=== PATIENT | female | born 1960 | race Two or more races ===

== ENCOUNTER 2020-10-16 10:33 | Outpatient (REF) | payer OTHER, SELFPAY ==
--- NOTE | 2020-10-16 10:37 | XR_ITS ---
EXAMINATION: KNEE X-RAY CLINICAL INFORMATION: Left knee pain COMPARISON: None TECHNIQUE: Standing AP view of both knees and lateral and sunrise view of the left knee FINDINGS: Left knee: Bone alignment is normal. No fracture or dislocation is seen. There is arthritis at the medial femoral tibial and patellofemoral joints with joint space narrowing and small osteophyte. There is a small joint effusion. Standing AP view of the right knee demonstrates medial femoral tibial joint space narrowing and small osteophyte. XR/XR knee standing BI IMPRESSION: Left knee: Mild arthritis and small joint effusion. Right knee: Arthritis at the medial femoral tibial joint.
--- NOTE | 2020-10-16 10:37 | XR_ITS ---
EXAMINATION: KNEE X-RAY CLINICAL INFORMATION: Left knee pain COMPARISON: None TECHNIQUE: Standing AP view of both knees and lateral and sunrise view of the left knee FINDINGS: Left knee: Bone alignment is normal. No fracture or dislocation is seen. There is arthritis at the medial femoral tibial and patellofemoral joints with joint space narrowing and small osteophyte. There is a small joint effusion. Standing AP view of the right knee demonstrates medial femoral tibial joint space narrowing and small osteophyte. XR/XR knee LT 2V IMPRESSION: Left knee: Mild arthritis and small joint effusion. Right knee: Arthritis at the medial femoral tibial joint.
== END 2020-10-16 10:34 | disposition home or self-care (01) ==
LOC: HO.HOSX 10:33
PROVIDERS: Visit Provider Orthopaedic Surgery
DX: M25.562 Pain in left knee (principal)
CPT/HCPCS: 73560; 73565; 99202

== ENCOUNTER 2020-11-02 10:31 | Outpatient (REF) | payer OTHER, SELFPAY ==
--- NOTE | 2020-11-02 11:49 | ECG_ITS ---
Test Reason : PREOP Blood Pressure : / mmHG Vent. Rate : 068 BPM Atrial Rate : 068 BPM P-R Int : 132 ms QRS Dur : 110 ms QT Int : 408 ms P-R-T Axes : -19 -03 019 degrees QTc Int : 433 ms Normal sinus rhythm Nonspecific T wave abnormality Abnormal ECG No previous ECGs available Referred By: Kev Mas Electronically Signed By:ZEINAB BENAVIDES MD
[2020-11-02 12:41] LABS: MANUAL DIFF FLAG NO
[2020-11-02 12:49] LABS: Basophils Percent Auto 0.5 % (0-2); Eosinophils Absolute Auto 0.1 X10*3/uL (0.0-0.4); Eosinophils Percent Auto 1.2 % (0-4); Hematocrit 41.9 % (37-47); Hemoglobin 13.1 g/dl (12.0-16.0); Imm Gran Abs Auto 0.04 X10*3/uL (0.00-0.03); Imm Gran Pct Auto 0.6 % (0.0-0.4); Lymphocytes Absolute Auto 1.8 X10*3/uL (1.2-4.9); Lymphocytes Percent Auto 27.1 % (20-40); Mean Corpuscular HGB Conc 31.3 g/dl (31.0-35.0); Mean Corpuscular Hemoglobin 25.2 pg (27.0-33.0); Mean Corpuscular Volume 80.7 fL (80-98); Monocytes Absolute Auto 0.7 X10*3/uL (0.1-1.2); Neutrophils Percent Auto 59.6 % (45-73); Platelet Count 313 X10*3/uL (160-400); Red Blood Count 5.19 X10*6/uL (4.20-5.50); Red Cell Distribution Width 14.1 % (11.0-16.0); White Blood Count 6.6 X10*3/uL (4.8-10.8)
[2020-11-02 13:00] LABS: Anion Gap 14 (12-20); Blood Urea Nitrogen 15 mg/dL (9-16); Calcium 9.2 mg/dL (8.4-10.2); Carbon Dioxide 27 mmol/L (22-29); Chloride 101 mmol/L (96-108); Estimated Glomerular Filt Rate > 60; Glucose Random 105 mg/dL (60-115); Potassium 4.5 mmol/l (3.3-5.1); Sodium 137 mmol/L (135-145)
== END 2020-11-02 10:32 | disposition home or self-care (01) ==
LOC: HO.LAB 10:31
PROVIDERS: PCP Internal Medicine; Visit Provider Orthopaedic Surgery
DX: Z01.812 Encounter for preprocedural laboratory examination (principal); Z01.810 Encounter for preprocedural cardiovascular examination
CPT/HCPCS: 36415; 80048; 85025; 93005

== ENCOUNTER → 2020-11-30 09:59 | Outpatient (BNVA) | payer OTHER, SELFPAY | PROVIDERS: PCP Internal Medicine; Visit Provider Orthopaedic Surgery | DX: M17.12 Unilateral primary osteoarthritis, left knee (principal) | CPT/HCPCS: 99212 ==

== ENCOUNTER 2020-12-06 06:04 | Inpatient (IN) | payer OTHER, SELFPAY ==
--- NOTE | 2020-11-29 10:57 | HO.ANESPROP2 ---
Documented by User: Mary Claytonney 12/05/20 10:52 HPI - Anesthesia Eval Consult details Narrative: 60yo F for L TKA Severe PONV with GA. Scop patch not effective. PCP Cleared at low risk [facility] Past Medical History Medical History Arthritis Depression History of breast cancer PONV (postoperative nausea and vomiting) Family History Family history of problems with anesthesia: Yes (PONV) Surgical History Surgical History H/O gastric bypass History of ear surgery Hx of arthroscopy of left knee Hx of cholecystectomy History of Problems with Anesthesia: Yes (PONV) Social History Social History Are you a primary healthcare network pricing consultant to a significant other at home: No Do you presently have visiting nurse or other home services: No Alcohol intake: current Alcohol intake frequency: a few times a month Smoking Status: Former smoker Smoking Quit Date: 1975 Second Hand Smoke Exposure: No Use of substances other than those prescribed or required for medical reasons: No Have you been hit, kicked, punched, or otherwise hurt by someone within the past year? If so, by whom?: No Cheondoism Healthcare Practices: Rastafari Advance Directives: No Advance Directives Information Provided: No Advance Directives on File: No Recently lost weight without trying: No Current occupational status: unemployed Current occupation: right-handed Narrative Narrative: Activity limited to pain. No CP/SOB with ADL, walking. No recent illness. Meds Allergies Allergy/AdvReac Type Severity Reaction Status Date / Time codeine Allergy Severe Abdominal Verified 11/30/20 10:52 [From Tylenol-Codeine] Pain Home Medications Medication Instructions Recorded Confirmed Type meloxicam 15 mg tablet 15 mg PO DAILY 10/16/20 11/29/20 History sertraline 50 mg tablet 50 mg PO DAILY 10/16/20 11/29/20 History Exam Exam Date and Time: November 29, 2020 1057 Pertinent Lab Results Pertinent Lab Results: Laboratory Tests 11/02/20 11/02/20 11:55 11:55 WBC 6.6 Hgb 13.1 Hct 41.9 Plt Count 313 Sodium 137 Potassium 4.5 Chloride 101 Carbon Dioxide 27 BUN 15 Creatinine 0.79 Laboratory Tests 11/30/20 11:00 Blood Type A Negative Antibody Screen NEGATIVE Narrative Narrative: EKG 11/02/20: Normal sinus rhythm Nonspecific T wave abnormality Airway Mallampati Class: II Neck ROM: Full Denture: Upper and Lower Heart: RRR Lungs: CTAB Assessment and Plan Assessment Anesthesia Assessment: Anesthesia Plan Discussed and PAT Visit Documented by User: Alhaji Lerner MD 12/06/20 08:16 PMFSH Past Medical History Medical History Arthritis Depression History of breast cancer PONV (postoperative nausea and vomiting) Surgical History Surgical History H/O gastric bypass History of ear surgery Hx of arthroscopy of left knee Hx of cholecystectomy Social History Social History Are you a primary healthcare network pricing consultant to a significant other at home: No Do you presently have visiting nurse or other home services: No Alcohol intake: current Alcohol intake frequency: a few times a month Smoking Status: Former smoker Smoking Quit Date: 1975 Second Hand Smoke Exposure: No Use of substances other than those prescribed or required for medical reasons: No Have you been hit, kicked, punched, or otherwise hurt by someone within the past year? If so, by whom?: No Cheondoism Healthcare Practices: Rastafari Advance Directives: No Advance Directives Information Provided: No Advance Directives on File: No Recently lost weight without trying: No Current occupational status: unemployed Current occupation: right-handed Meds Allergies Allergy/AdvReac Type Severity Reaction Status Date / Time codeine Allergy Severe Abdominal Verified 11/30/20 10:52 [From Tylenol-Codeine] Pain Home Medications Medication Instructions Recorded Confirmed Type meloxicam 15 mg tablet 15 mg PO DAILY 10/16/20 11/29/20 History sertraline 50 mg tablet 50 mg PO DAILY 10/16/20 11/29/20 History Assessment and Plan Assessment Anesthesia Assessment: Anesthesia Plan Discussed and Chart Reviewed Final Anesthetic Review NPO: Yes ASA Class: III Final Preanesthetic Review: No Changes in Pt Med Stat, Meds/Allgs Chart Reviewed, Consent Obtained/Reviewed and Anes Risks/Benef Reviewed Patient Risk: Intermediate Procedure Risk: Intermediate Anesthetic Plan Anesthetic Plan: MAC:, Spinal and Regional Block Disposition: Standard PACU
[2020-11-29 12:27] VITALS: BP 140/78; PULSE 94; RESP 20; O2SAT 98; BMI 36.4
[2020-11-29 16:02] LABS: MRSA Nasal PCR NEGATIVE (Negative); SA Nasal PCR NEGATIVE (Negative)
[2020-12-06] VITALS (16 sets, daily range): BP systolic 100–141; BP diastolic 59–91; PULSE 54–93; RESP 15–20; TEMP 36.1–36.9; O2SAT 93–100
[2020-12-06] MEDS: Gabapentin 600 MG TABLET PO (06:20)
[2020-12-06 06:33] LABS: COVID-19 Test Negative (Negative)
[2020-12-06] MEDS: ceFAZolin Sodium/Dextrose,Iso 2 GM/50 ML PIGGYBACK IV ×2 (06:42→14:01)
[2020-12-06] MEDS: Lactated Ringers 1,000 ML 100 ML IVCONT (06:43)
--- NOTE | 2020-12-06 07:27 | MHC.SHP ---
Pre-Procedural Eval Section A The patient is an INPATIENT: No Changes since office visit: Yes Patient answered all questions; No Cold of Flu in the past 2 weeks, No New Medical Problems and No Changes in Medication The History & Physical has been completed within 30 days and I have reviewed it.: Yes Section B Chief Complaint: LEFT TOTAL KNEE ARTHROPLASTY Allergies: Allergies Allergy/AdvReac Type Severity Reaction Status Date / Time codeine Allergy Severe Abdominal Verified 11/30/20 10:52 [From Tylenol-Codeine] Pain Plan I have reviewed the history and physical and performed a pertinent physical examination on my patient. No changes have occurred unless specified.
--- NOTE | 2020-12-06 09:04 | PM.OP ---
Brief Operative Note Date of Service: 12/06/20 Pre-op diagnosis: left knee OA Post-op diagnosis: same Procedure: left TKA Implants: [place] triathalon press fit 04/03/10 Surgeon: Kev Mas MD Anesthesia: regional and spinal Geographic Information Systems Director: Sabrina Aguilar Estimated blood loss (mL): 25 Tourniquet time (min): 43 IV fluids (mL): 700 Urine output (mL): 0 Pathology: other Condition: stable Disposition: PACU
--- NOTE | 2020-12-06 09:52 | XR_ITS ---
EXAMINATION: XR KNEE, LEFT CLINICAL INFORMATION: Post knee replacement COMPARISON: None TECHNIQUE: Two views of the left knee. FINDINGS: There is a left 3 component knee replacement in satisfactory position. No fracture or dislocation is seen. There are postoperative changes to the soft tissues. XR/XR knee LT 2V IMPRESSION: Satisfactory appearance of left knee replacement.
[2020-12-06] MEDS: Dextrose 5 % and 0.45 % NaCl 1,000 ML 80 ML IVCONT (14:01)
[2020-12-06] MEDS: oxyCODONE HCl Immed Release 5 MG TABLET PO (14:04)
[2020-12-06] MEDS: HYDROmorphone HCl 0.5 MG/0.5 ML SYRINGE 0.25 MG IVPUSH ×2 (16:45→21:44)
--- NOTE | 2020-12-06 17:29 | PM.IMCN ---
History of Present Illness Data of Consult Service Date: 12/06/20 Requesting physician: Kev Mas Primary Care Provider: Zo URIOSTEGUI Reason for consult: depression/anxiety 60F admitted for elective left knee replacement. medicine consulted for perioperative maangement. patient reports surgical site pain, otherwise no complaints. denies chest pain, fever, chills. so far postoperative course has been uneventful. she is on sertraline for depression/anxiety which is well managed at this time. Review of Systems Review of Systems: Constitutional: Denies fever, denies Chills Eyes: denies blurry vision ENT: denies sore throat CVS: denies chest pain Respiratory: Denies dyspnea GI: no abdominal pain : denies dysuria MSK: denies neck pain Skin: denies rash Neuro: denies specific motor weakness Psych: denies suicidal ideation Endocrine: denies heat/cold intoleratnce Hematologic: denies easy bleeding Allergy: denies hives [facility] Medical History Arthritis Depression History of breast cancer PONV (postoperative nausea and vomiting) Pertinent family history: no cad Surgical History H/O gastric bypass History of ear surgery Hx of arthroscopy of left knee Hx of cholecystectomy Social History Household Members: Children Housing: House Are you a primary health care sanitary technician to a significant other at home: No Do you presently have visiting nurse or other home services: No Alcohol intake: current Alcohol intake frequency: a few times a month Smoking Status: Former smoker Smoking Quit Date: 1975 Second Hand Smoke Exposure: No Use of substances other than those prescribed or required for medical reasons: No Have you been hit, kicked, punched, or otherwise hurt by someone within the past year? If so, by whom?: No Do you feel safe in your current relationship?: Yes Is there a partner from a previous relationship who is making you feel unsafe now?: No Are you made to feel afraid or neglected: No Jewish Healthcare Practices: Taoist Advance Directives: No Advance Directives Information Provided: No Advance Directives on File: No Do you have thoughts of harming others: None Recently lost weight without trying: No Current occupational status: unemployed Current occupation: right-handed Meds Allergies Allergy/AdvReac Type Severity Reaction Status Date / Time codeine Allergy Severe Abdominal Verified 11/30/20 10:52 [From Tylenol-Codeine] Pain Home Medications Medication Instructions Recorded Confirmed Type meloxicam 15 mg tablet 15 mg PO DAILY 10/16/20 11/29/20 History sertraline 50 mg tablet 50 mg PO DAILY 10/16/20 11/29/20 History Physical Exam Vital Signs and Narrative: Vital Signs: Last Vital Signs Temp 98.3 F 12/06/20 16:00 Pulse 75 12/06/20 16:00 Resp 15 12/06/20 16:00 BP 100/68 12/06/20 16:00 Pulse Ox 95 12/06/20 16:00 Body Mass Index 36.4 General: no acute distress HEENT: atraumatic Neck: normal to visual inspection CVS: S1, S2, RRR Resp: CTA bilateral Chest: non tender GI: soft, non tender, non distended : no CVA tenderness Skin: no rashes Extremities: no edema Neuro: Oriented X3, grossly intact Psych: cooperative, Results Labs Labs: Laboratory Results - last 24 hr 12/06/20 06:10 COVID-19 (TIMMY) Negative COVID-19 Clin Com See Note Imaging Radiologist's Impressions: Impressions Knee X-Ray 12/06/20 09:52 IMPRESSION: Satisfactory appearance of left knee replacement. Assessment and Plan (1) Depression: Status: Inactive (2) Osteoarthritis of left knee: Status: Acute 60F admitted for elective left knee arthroplasty s/p Left TKA management per primary team depression/anxiety continue sertraline
[2020-12-06] MEDS: oxyCODONE HCl ER 10 MG TAB.ER.12H PO (21:39)
[2020-12-06] MEDS: Celecoxib 200 MG CAPSULE PO (21:39)
[2020-12-07] VITALS (8 sets, daily range): BP systolic 103–134; BP diastolic 58–80; PULSE 63–87; RESP 15–20; TEMP 36.4–37.1; O2SAT 93–97; BMI 36.4
[2020-12-07] MEDS: Dextrose 5 % and 0.45 % NaCl 1,000 ML 80 ML IVCONT (02:34)
[2020-12-07] MEDS: HYDROmorphone HCl 0.5 MG/0.5 ML SYRINGE 0.25 MG IVPUSH ×3 (02:34→20:14)
[2020-12-07 06:44] LABS: MANUAL DIFF FLAG NO
[2020-12-07 07:18] LABS: Basophils Percent Auto 0.2 % (0-2); Eosinophils Absolute Auto 0.2 X10*3/uL (0.0-0.4); Eosinophils Percent Auto 2.7 % (0-4); Hematocrit 34.5 % (37-47); Hemoglobin 10.6 g/dl (12.0-16.0); Imm Gran Abs Auto 0.05 X10*3/uL (0.00-0.03); Imm Gran Pct Auto 0.8 % (0.0-0.4); Lymphocytes Percent Auto 16.1 % (20-40); Mean Corpuscular HGB Conc 30.7 g/dl (31.0-35.0); Mean Corpuscular Hemoglobin 24.7 pg (27.0-33.0); Mean Corpuscular Volume 80.2 fL (80-98); Mean Platelet Volume 10.2 fL (9.4-12.3); Monocytes Absolute Auto 0.6 X10*3/uL (0.1-1.2); Monocytes Percent Auto 9.2 % (2-11); Neutrophils Absolute Auto 4.3 X10*3/uL (2.0-8.3); Platelet Count 197 X10*3/uL (160-400); Red Cell Distribution Width 13.9 % (11.0-16.0)
[2020-12-07 07:24] LABS: Anion Gap 15 (12-20); Blood Urea Nitrogen 17 mg/dL (9-16); Calcium 8.1 mg/dL (8.4-10.2); Carbon Dioxide 21 mmol/L (22-29); Chloride 100 mmol/L (96-108); Creatinine Clr Calc Pharmacy 103.4; Estimated Glomerular Filt Rate > 60; Glucose Fasting 146 mg/dL (60-99); Potassium 3.8 mmol/l (3.3-5.1); Sodium 132 mmol/L (135-145)
[2020-12-07] MEDS: oxyCODONE HCl ER 10 MG TAB.ER.12H PO ×2 (08:14→20:09)
[2020-12-07] MEDS: oxyCODONE HCl Immed Release 5 MG TABLET 10 MG PO (08:14)
[2020-12-07] MEDS: Sertraline HCL 50 MG TABLET PO (08:14)
[2020-12-07] MEDS: 0.9 % Sodium Chloride Flush 3 ML SYRINGE IVFLUSH ×2 (08:15→16:15)
--- NOTE | 2020-12-07 09:39 | HO.POSTANES ---
Post Anesthesia Evaluation Post Anesthesia Evaluation Vital Signs: Vital Signs Temp Pulse Resp BP Pulse Ox 12/07/20 09:10 79 134/80 96 12/07/20 07:09 98.7 F 79 16 134/80 96 12/07/20 04:00 98.0 F 87 20 120/71 94 12/06/20 23:04 98.2 F 86 20 127/80 93 Anesthesia: Spinal Mental Status: Awake Pain Control: Satisfactory Nausea/Vomiting: None Hydration: Adequate Anesthesia-Related Issues: No Anes. Related Issues
--- NOTE | 2020-12-07 09:50 | MHC.CM.PN ---
Addendum entered by Rebekah Knutson RN 12/07/20 12:07: IMM REVIEWED WITH PATIENT 12/07/20 HCP COMPLETED, PT GIVEN 4 COPIES, COPY UPLOADED TO [employer] AND COPY PLACED IN CHART. Addendum entered by Rebekah Knutson RN 12/07/20 09:56: PT REPORTS SHE HAS RESTARTED HER SERTRALINE FOR DEPRESSION AND FEELS STABLE AT THIS TIME, PT REPORTS PCP RONNELL DEMARCO PRESCRIBES FOR HER, PT DOES NOT FEEL THE NEED FOR THERAPIST AT THIS TIME. Original Note: CM MET WITH PT, PT LIVES AT HOME WITH AND DAUGHTER, PT INDEPENDENT WITH ALL CARE PRIOR LEFT TOTAL KNEE ARTHROPLASTY, PT REPORTS AND DAUGHTER CAN ASSIST HER WITH PERSONAL AND HOUSEHOLD NEEDS ONCE HOME. PT DENIES USE OF ANY DME AND DENIES [facility] OR HOME HEALTH SERVICES. PT REPORTS LOSING THE PAPERWORK FOR HER HEALTH CARE PROXY AND CM WILL COMPLETE A NEW ONE WITH PATIENT. DISCHARGE PLAN HOME W/[facility] FOR POST OPERATIVE CARE AND ASSESSMENT AND HOME PT. HCP: SAMMI PHILLIPS (SON) [phone] ALTERNATE: MIRANDA BROOKS (DAUGHTER) [phone]
--- NOTE | 2020-12-07 10:48 | HO.PM.IMPN ---
Subjective Subjective Date of Service: 12/07/20 Interval History: feeling well Respiratory Respiratory: Reports no additional respiratory complaints Gastrointestinal Gastrointestinal: Reports no additional gastrointestinal complaints Physical Exam Vital Signs: Vital Signs: Last Vital Signs Temp 98.7 F 12/07/20 07:09 Pulse 79 12/07/20 09:10 Resp 16 12/07/20 07:09 BP 134/80 12/07/20 09:10 Pulse Ox 96 12/07/20 09:10 Body Mass Index 36.4 General: AO X 3, no acute distress Resp: CTA bilateral CVS: S1,S2,RRR GI: soft, non tender, non distended Neuro: motor grossly intact Psych: appropriate affect Objective Data Current Medications Generic Name Dose Route Start Last Admin Trade Name Freq PRN Reason Stop Dose Admin Acetaminophen 650 mg 12/06/20 13:08 Acetaminophen 325 Mg Tablet PO Q6H PRN Pain, Mild (Pain Scale 1-3) Aspirin 325 mg 12/07/20 10:00 Aspirin 325 Mg Tablet PO BID JUS Celecoxib 200 mg 12/06/20 21:00 12/06/20 21:39 Celecoxib 200 Mg Capsule PO 200 mg BID JUS Administration Hydromorphone HCl 0.25 mg 12/06/20 13:08 12/07/20 02:34 Hydromorphone Hcl 0.5 Mg/0.5 Ml Syringe IVPUSH 0.25 mg Q4H PRN Administration Pain, Severe (Pain Scale 7-10) Dextrose/Sodium Chloride 1,000 mls @ 80 mls/hr 12/06/20 13:08 12/07/20 02:34 D51/2ns IVCONT 80 mls/hr .[id number] JUS Administration Naloxone HCl 0.2 mg 12/06/20 13:08 Naloxone Hcl 0.4 Mg/Ml Vial IVPUSH Q2M PRN Excessive sedation or RR < 8 Ondansetron HCl 4 mg 12/06/20 13:08 Ondansetron Hcl 4 Mg/2 Ml Vial IVPUSH Q8H PRN Nausea and Vomiting Oxycodone HCl 10 mg 12/06/20 21:00 12/07/20 08:14 Oxycodone Hcl Er 10 Mg Tab.Er.12h PO 10 mg BID JUS Administration Oxycodone HCl 10 mg 12/07/20 08:02 12/07/20 08:14 Oxycodone Hcl Immed Release 5 Mg Tablet PO 10 mg Q6H PRN Administration Pain, Moderate (Pain Scale 4-6 Senna 17.2 mg 12/06/20 13:08 Sennosides 8.6 Mg Tablet PO BEDTIME PRN Constipation Sertraline HCl 50 mg 12/07/20 09:00 12/07/20 08:14 Sertraline Hcl 50 Mg Tablet PO 50 mg DAILY JUS Administration Sodium Chloride 3 ml 12/06/20 16:00 12/07/20 08:15 0.9 % Sodium Chloride Flush 3 Ml Syringe IVFLUSH 3 ml QSHIFT JUS Administration Labs CBC & Chem 7: 12/07/20 06:22 12/07/20 06:22 Assessment and Plan (1) Depression: Status: Inactive (2) Osteoarthritis of left knee: Status: Acute Assessment and Plan: 60F admitted for elective left knee arthroplasty s/p Left TKA POD 1 management per primary team hyponatremia mild, discontinue hypotonic fluids depression/anxiety continue sertraline medically stable, will sign off for now, please recall if needed
[2020-12-07] MEDS: Aspirin 325 MG TABLET PO ×2 (10:52→20:09)
[2020-12-07] MEDS: Celecoxib 200 MG CAPSULE PO ×2 (10:52→20:09)
--- NOTE | 2020-12-07 14:45 | PM.PNORT ---
Subjective Subjective Date of Service: 12/07/20 Principal diagnosis: LT TKA Interval history: No overnight events POD 1 s/p LT TKA. Doing well, has been out of bed with PT, pain has been diff to manage. No concerns. Physical Exam Vital Signs: Vital Signs: Last Vital Signs Temp 98.0 F 12/07/20 11:23 Pulse 73 12/07/20 13:54 Resp 15 12/07/20 11:23 BP 126/73 12/07/20 13:54 Pulse Ox 94 12/07/20 13:54 Body Mass Index 36.4 Const: General: cooperative, healthy appearing and no acute distress Resp: Effort & Inspection: normal respiratory effort and able to speak in complete sentences Cardio: Rate: regular rate Peripheral pulses: Peripheral pulses 2+ throughout GI: Inspection: Yes normal to inspection Palpation (GI): Soft to palpation Skin: General skin exam: no rashes or lesions noted Extrem: Other: Left knee bandage intact, no erythema mild edema, ROM 5-90. Calf supple non tender Progress Note: A&P Assessment and plan (1) Status post total left knee replacement: Status: Acute Assessment and Plan: Continue pain mgmnt Begin asa dvt ppx begin PT for LT TKA Dispo planning-Pending PT eval, pain mgmnt Fall Risk Details Current Medications: Current Medications Generic Name Dose Route Start Last Admin Trade Name Freq PRN Reason Stop Dose Admin Acetaminophen 650 mg 12/06/20 13:08 Acetaminophen 325 Mg Tablet PO Q6H PRN Pain, Mild (Pain Scale 1-3) Aspirin 325 mg 12/07/20 10:00 12/07/20 10:52 Aspirin 325 Mg Tablet PO 325 mg BID JUS Administration Celecoxib 200 mg 12/06/20 21:00 12/07/20 10:52 Celecoxib 200 Mg Capsule PO 200 mg BID JUS Administration Hydromorphone HCl 0.25 mg 12/06/20 13:08 12/07/20 13:14 Hydromorphone Hcl 0.5 Mg/0.5 Ml Syringe IVPUSH 0.25 mg Q4H PRN Administration Pain, Severe (Pain Scale 7-10) Naloxone HCl 0.2 mg 12/06/20 13:08 Naloxone Hcl 0.4 Mg/Ml Vial IVPUSH Q2M PRN Excessive sedation or RR < 8 Ondansetron HCl 4 mg 01/06/21 13:08 Ondansetron Hcl 4 Mg/2 Ml Vial IVPUSH Q8H PRN Nausea and Vomiting Oxycodone HCl 10 mg 12/06/20 21:00 12/07/20 08:14 Oxycodone Hcl Er 10 Mg Tab.Er.12h PO 10 mg BID JUS Administration Oxycodone HCl 10 mg 12/07/20 08:02 12/07/20 08:14 Oxycodone Hcl Immed Release 5 Mg Tablet PO 10 mg Q6H PRN Administration Pain, Moderate (Pain Scale 4-6 Senna 17.2 mg 12/06/20 13:08 Sennosides 8.6 Mg Tablet PO BEDTIME PRN Constipation Sertraline HCl 50 mg 12/07/20 09:00 12/07/20 08:14 Sertraline Hcl 50 Mg Tablet PO 50 mg DAILY JUS Administration Sodium Chloride 3 ml 12/06/20 16:00 12/07/20 08:15 0.9 % Sodium Chloride Flush 3 Ml Syringe IVFLUSH 3 ml QSHIFT JUS Administration Time Spent With Patient Time: Total time spent is greater than 50% in coordination of care (as documented) at patient's floor/unit and/or counseling patient: Time with patient: less than 15 minutes
[2020-12-08] MEDS: 0.9 % Sodium Chloride Flush 3 ML SYRINGE IVFLUSH ×2 (00:31→07:31)
[2020-12-08 04:00] VITALS: BP 107/59; PULSE 88; RESP 16; TEMP 36.6; O2SAT 95
[2020-12-08 06:33] LABS: MANUAL DIFF FLAG NO
[2020-12-08 06:58] LABS: Basophils Percent Auto 0.3 % (0-2); Eosinophils Absolute Auto 0.2 X10*3/uL (0.0-0.4); Eosinophils Percent Auto 2.9 % (0-4); Hematocrit 33.8 % (37-47); Hemoglobin 10.5 g/dl (12.0-16.0); Imm Gran Abs Auto 0.05 X10*3/uL (0.00-0.03); Imm Gran Pct Auto 0.7 % (0.0-0.4); Lymphocytes Absolute Auto 0.8 X10*3/uL (1.2-4.9); Mean Corpuscular HGB Conc 31.1 g/dl (31.0-35.0); Mean Corpuscular Hemoglobin 24.6 pg (27.0-33.0); Mean Corpuscular Volume 79.2 fL (80-98); Mean Platelet Volume 10.3 fL (9.4-12.3); Monocytes Absolute Auto 0.8 X10*3/uL (0.1-1.2); Neutrophils Absolute Auto 5.1 X10*3/uL (2.0-8.3); Neutrophils Percent Auto 74.1 % (45-73); Platelet Count 189 X10*3/uL (160-400); Red Blood Count 4.27 X10*6/uL (4.20-5.50); Red Cell Distribution Width 13.9 % (11.0-16.0); White Blood Count 6.8 X10*3/uL (4.8-10.8)
[2020-12-08 07:08] LABS: Anion Gap 14 (12-20); Blood Urea Nitrogen 15 mg/dL (9-16); Calcium 8.3 mg/dL (8.4-10.2); Carbon Dioxide 24 mmol/L (22-29); Chloride 100 mmol/L (96-108); Creatinine Clr Calc Pharmacy 108.2; Estimated Glomerular Filt Rate > 60; Glucose Fasting 111 mg/dL (60-99); Sodium 134 mmol/L (135-145)
[2020-12-08] MEDS: Aspirin 325 MG TABLET PO (07:27)
[2020-12-08] MEDS: Celecoxib 200 MG CAPSULE PO (07:27)
[2020-12-08] MEDS: Sertraline HCL 50 MG TABLET PO (07:28)
[2020-12-08] MEDS: oxyCODONE HCl Immed Release 5 MG TABLET 10 MG PO (07:28)
[2020-12-08 08:00] VITALS: BP 98/61; PULSE 78; RESP 20; TEMP 36.3; O2SAT 97
[2020-12-08 08:05] VITALS: BP 107/59; PULSE 88; O2SAT 95
--- NOTE | 2020-12-08 08:20 | P.DS_ITS ---
DS: Providers Provider Date of Service: 12/08/20 Date of admission: 12/06/20 06:04 Primary care physician: Zo Messina Consults: 12/06/20 13:08 Consult to Hospitalist Routine Consulting Provider: Hospitalist Reason for consultation: medical management DS: Diagnosis Discharge Diagnosis (1) Status post total left knee replacement: Status: Acute Problem details: Ms. Honeycutt is a 60 yo female who presented to the office for left knee pain, she was found to have OA of the left knee and failed all conservative measures and continued to have difficulty with ADLs; therefore, she consented to move forward with LT TKA. DS: Medications Discharge Medications Home Medications: Home Medications Medication Instructions Recorded Confirmed sertraline 50 mg tablet 50 mg PO DAILY 10/16/20 11/29/20 Previous Rx's Medication Instructions Recorded acetaminophen 650 mg PO Q6H PRN 30 Days #240 tab 12/07/20 oxycodone 10 mg PO Q6H PRN 7 Days #28 tab 12/07/20 sennosides [Senna Lax] 17.2 mg PO BEDTIME PRN 30 Days #60 12/07/20 tab walker #1 ea 12/07/20 aspirin 325 mg PO BID 14 Days #28 tab 12/08/20 DS: Summary Hospital Course Hospital Course: The patient underwent a successful Left TKA, she was transferred to PACU and then to the floor to recover. During their stay, their vitals were stable, afebrile at 97.4. Labs were unremarkable, H/H 10.5/33.8. POD 1 she was started on ASA for DVT ppx, they also received PT services twice a day. Prior to discharge, their dressing was change, incision clean dry and intact, new Aquacel dressing applied and the plan was to be discharged home with VNA services,. Time Spent with Patient Time attestation: Total time spent providing and/or coordinating discharge serv ices: Discharge coordination time: Less than 30 minutes Physical Exam Vital Signs: Vital Signs: Last Vital Signs Temp 97.4 F 12/08/20 08:00 Pulse 88 12/08/20 08:05 Resp 20 12/08/20 08:00 BP 107/59 L 12/08/20 08:05 Pulse Ox 95 12/08/20 08:05 Body Mass Index 36.4 Const: General: cooperative, healthy appearing and no acute distress Resp: Effort & Inspection: normal respiratory effort and able to speak in complete sentences Cardio: Rate: regular rate Peripheral pulses: Peripheral pulses 2+ throughout GI: Inspection: Yes normal to inspection Palpation (GI): Soft to palpation Skin: General skin exam: no rashes or lesions noted Extrem: Other: Left knee incision clean, dry and intact. Tre intact. NO erythema or drainage. Calf supple non tender. DS: Data Data Completed and Pending Completed studies during hospitalization [Text1]: Pending at discharge 12/06/20 08:59 Surgical [PTH] Routine Labs on day of discharge: 11/29/20 MRSA Nasal Screen Routine 11/30/20 11:00 Type and Screen Routine 12/06/20 06:00 Gabapentin [Neurontin] 600 mg PO PREOP ONE Lactated Ringers [Lr] 1,000 ml IVCONT 100 mls/hr ceFAZolin Sodium/Dextrose,Iso [Ancef] 2 gm in 50 ml IV PREOP 12/06/20 06:00 Providone-Iodine Solution 5% nasal swab .Both Nares x2 pre-op Surgical prep, hair removal PREOP 12/06/20 06:10 COVID-19 ID NOW ([facility]) Stat 12/06/20 06:20 Gabapentin [Neurontin] 300 mg .ROUTE .STK-MED ONE ceFAZolin Sodium/Dextrose,Iso [Ancef] 2 gm in 50 ml .ROUTE As directed 12/06/20 07:12 Midazolam HCl/PF [Versed] 2 mg .ROUTE .STK-MED ONE 12/06/20 07:13 Bupivacaine MPF 0.5 % [Sensorcaine MPF 0.5% 30 ML] 30 ml .ROUTE .STK-MED ONE Lidocaine HCl 2 % MPF [Xylocaine 2 % MPF] 5 ml .ROUTE .STK-MED ONE 12/06/20 08:00 propofoL [Diprivan] 200 mg IVPUSH .STK-MED ONE 12/06/20 08:05 Tranexamic Acid [Cyklokapron] 1,000 mg .ROUTE .STK-MED ONE 12/06/20 08:16 Acetaminophen [Tylenol] 650 mg PO ONCE PRN HYDROmorphone HCl [Dilaudid] 0.25 mg IVPUSH Q5M PRN oxyCODONE HCl Immed Release [Roxicodone] 5 mg PO ONCE PRN 12/06/20 08:40 Tranexamic Acid [Cyklokapron] 1,000 mg .ROUTE .STK-MED ONE 12/06/20 08:59 Surgical [PTH] Routine 12/06/20 09:06 ondansetron HCL [Zofran] 4 mg IVPUSH ONCE PRN 12/06/20 09:23 Transfer Order Routine 12/06/20 09:52 XR knee LT 2V Stat 12/06/20 13:08 Dextrose 5 % and 0.45 % NaCl [D51/2Ns] 1,000 ml IVCONT 80 mls/hr oxyCODONE HCl Immed Release [Roxicodone] 5 mg PO Q4H PRN 12/06/20 13:54 ceFAZolin Sodium/Dextrose,Iso [Ancef] 2 gm in 50 ml IV ONCE@1354 12/07/20 06:22 Basic Metabolic Panel Fasting DAILY@0600 Complete Blood Count Auto Diff DAILY@0600 12/08/20 06:06 Basic Metabolic Panel Fasting DAILY@0600 Complete Blood Count Auto Diff DAILY@0600 Laboratory Last Values WBC 6.8 X10*3/uL (4.8-10.8) 12/08/20 06:06 RBC 4.27 X10*6/uL (4.20-5.50) 12/08/20 06:06 Hgb 10.5 g/dl (12.0-16.0) L 12/08/20 06:06 Hct 33.8 % (37-47) L 12/08/20 06:06 MCV 79.2 fL (80-98) L 12/08/20 06:06 MCH 24.6 pg (27.0-33.0) L 12/08/20 06:06 MCHC 31.1 g/dl (31.0-35.0) 12/08/20 06:06 RDW 13.9 % (11.0-16.0) 12/08/20 06:06 Plt Count 189 X10*3/uL (160-400) 12/08/20 06:06 MPV 10.3 fL (9.4-12.3) 12/08/20 06:06 Immature Gran % (Auto) 0.7 % (0.0-0.4) H 12/08/20 06:06 Neut % (Auto) 74.1 % (45-73) H 12/08/20 06:06 Lymph % (Auto) 11.0 % (20-40) L 12/08/20 06:06 [place] % (Auto) 11.0 % (2-11) 12/08/20 06:06 Eos % (Auto) 2.9 % (0-4) 12/08/20 06:06 Baso % (Auto) 0.3 % (0-2) 12/08/20 06:06 Lymph # (Auto) 0.8 X10*3/uL (1.2-4.9) L 12/08/20 06:06 [place] # (Auto) 0.8 X10*3/uL (0.1-1.2) 12/08/20 06:06 Eos # (Auto) 0.2 X10*3/uL (0.0-0.4) 12/08/20 06:06 Baso # (Auto) 0.0 X10*3/uL (0.0-0.2) 12/08/20 06:06 Abs Immat Gran (auto) 0.05 X10*3/uL (0.00-0.03) H 12/08/20 06:06 Absolute Neuts (auto) 5.1 X10*3/uL (2.0-8.3) 12/08/20 06:06 Absolute Nucleated RBC 0.000 X10*3/uL (0.0-0.012) 12/08/20 06:06 Nucleated RBC % (auto) 0.0 /100WBC (0.0-0.2) 12/08/20 06:06 Sodium 134 mmol/L (135-145) L 12/08/20 06:06 Potassium 4.0 mmol/l (3.3-5.1) 12/08/20 06:06 Chloride 100 mmol/L (96-108) 12/08/20 06:06 Carbon Dioxide 24 mmol/L (22-29) 12/08/20 06:06 Anion Gap 14 (12-20) 12/08/20 06:06 BUN 15 mg/dL (9-16) 12/08/20 06:06 Creatinine 0.66 mg/dL (0.5-1.4) 12/08/20 06:06 Estim Creat Clear Calc 108.2 12/08/20 06:06 Estimated GFR > 60 12/08/20 06:06 Fasting Glucose 111 mg/dL (60-99) H 12/08/20 06:06 Calcium 8.3 mg/dL (8.4-10.2) L 12/08/20 06:06 Nasal Screen MRSA (PCR) NEGATIVE (Negative) 11/29/20 Unknown Nasal S. aureus Screen NEGATIVE (Negative) 11/29/20 Unknown Nasal MRSA/S.aureus Interp SEE NOTE 11/29/20 Unknown COVID-19 (TIMMY) Negative (Negative) 12/06/20 06:10 COVID-19 Clin Com See Note 12/06/20 06:10 Blood Type A Negative 11/30/20 11:00 Antibody Screen NEGATIVE 11/30/20 11:00 Discharge Plan Discharge Patient Disposition: Home Health Service Referrals: Sabrina Aguilar PA-C [Physician Health Promotion Coordinator] - (follow-up with ortho in 2 weeks) Discharge Medications: New acetaminophen 325 mg Tablet 650 mg PO Q6H PRN (Reason: Pain, Mild (Pain Scale 1-3)) 30 Days Qty: 240 RF: 0 oxycodone 10 mg tablet 10 mg PO Q6H PRN (Reason: Pain, Moderate (Pain Scale 4-6) 7 Days Qty: 28 RF: 0 sennosides [Senna Lax] 8.6 mg Tablet 17.2 mg PO BEDTIME PRN (Reason: Constipation) 30 Days Qty: 60 RF: 0 (DME) walker Misc See Rx Instructions .ROUTE .MEDSUPPLY Qty: 1 RF: 0 aspirin 325 mg Tablet 325 mg PO BID 14 Days Qty: 28 RF: 0 Continued sertraline 50 mg tablet 50 mg PO DAILY RF: 0 Discontinued meloxicam 15 mg tablet 15 mg PO DAILY RF: 0 Discharge Orders: Discharge Order (Routine); Ordered 12/08/20 Ordered By: Sabrina Aguilar Diet: regular diet Activity on Discharge: Use cane or walker Activity Restrictions/Additional Instructions: * Physical Therapy for ROM 0-120, quad strength, gait training . Use walker for ambulation * Limit stair climbing, No shower, No tub bath, No driving * Continue ASA for dvt ppx * Keep Aquacel dressing clean, dry and intact. * Follow up with orthopedics in 2 weeks Visit Report Forms: Patient Portal Discharge page Care Plan Goals: Restore function of left knee Health Concerns: none Plan of Treatment: Physical Therapy Pain management DVT prophylaxis
[2020-12-08] MEDS: oxyCODONE HCl ER 10 MG TAB.ER.12H PO (09:55)
--- NOTE | 2021-01-12 17:22 | OP_ITS ---
SURGEON: Kev Mas MD INDICATIONS: This is a 60-year-old female with osteoarthritis of the left knee, consented to undergo left knee arthroplasty. PREOPERATIVE DIAGNOSIS: Left knee osteoarthritis. POSTOPERATIVE DIAGNOSIS: Left knee osteoarthritis. PROCEDURE PERFORMED: Left total knee arthroplasty. ESTIMATED BLOOD LOSS: 25 mL. COMPLICATIONS: ANESTHESIA: ASSISTANTS: SPECIMENS: IMPLANTS: Aden triathlon press-fit 5/4/10CR/29A. TOURNIQUET TIME: 43 minutes. IV FLUIDS: 700. URINE OUTPUT: None. PROCEDURE IN DETAIL: The patient was brought to the operating room, placed supine on the operative table and prepped and draped in standard sterile fashion. Time-out was called to identify proper site, proper procedure, proper surgeon. IV antibiotics per weight was administered. I began by exsanguinating the limb and insufflating the tourniquet to 300 mmHg. I then made a standard midline incision down to the retinaculum and performed a medial parapatellar arthrotomy. I translated the patella laterally and removed the fat pad and performed a small medial peel. I then flexed the knee up. She had medial and anterior compartment osteoarthritis. I used Kleberg's line to drill my intramedullary femoral guide, made my distal femoral cut in 5 degrees of valgus. I then sized 5 femur room anterior, posterior, and chamfer cuts. Once this was done, I turned to the tibia, where I took 2 mm off the medial side in line with the tibial crest. Posterior soft tissues were protected at all times and an extension block was used to confirm amount of resection. Once I was happy with that, I trialed a size 4 tibia and took the knee through range of motion. I was happy with the stability and range. The undersurface of the patella was then resurfaced and I again took the knee through range of motion and was happy with the tracking. I removed all instrumentation and placed my final femur and tibia and patella using a press-fit technique and then trialed a 9, 10 and 11 insert. I was happiest with a 10 CR insert. This was placed and copious irrigation performed. A 3-minute iodine soak with local TXA was applied and tourniquet was let down. There was no brisk bleeding. Layered closure with neda on the skin was performed. The patient was extubated and brought to recovery room in stable condition. There were no known complications. ROUTE SERVICE REPRESENTATIVE: Ta-Martha Meuse, PA. MD GALLO Deng/JUAN / [phone]
== END 2020-12-08 10:47 | disposition home health service (06) | DRG 302 ==
LOC: HO.SSSA 06:04 → HO.S3 12:27
PROVIDERS: Physician Assistant; Admitting Provider Orthopaedic Surgery; PCP Internal Medicine; Visit Provider Orthopaedic Surgery
PROC: 0SRD0JA Replacement of Left Knee Joint with Synthetic Substitute, Uncemented, Open Approach (ICD-10-PCS; CPT 27447; principal; 2020-12-06 07:30)
DX: M17.12 Unilateral primary osteoarthritis, left knee (principal); E87.1 Hypo-osmolality and hyponatremia; F32.9 Major depressive disorder, single episode, unspecified; Z20.828 Contact with and (suspected) exposure to other viral communicable diseases; Z98.84 Bariatric surgery status; Z79.899 Other long term (current) drug therapy
CPT/HCPCS: 36415; 73560; 80048; 85025; 86850; 86900; 86901; 87635; 87640; 87641; 88305; 88311; 97110; 97116; 97162; C1776; J0690; J1170; J2250

== ENCOUNTER → 2020-12-22 13:12 | Outpatient (BNVA) | payer OTHER, SELFPAY | PROVIDERS: PCP Internal Medicine; Visit Provider Physician Assistant | DX: Z47.1 Aftercare following joint replacement surgery (principal); Z96.652 Presence of left artificial knee joint | CPT/HCPCS: 99212 ==

== ENCOUNTER 2021-01-17 08:58 | Outpatient (RCR) | payer OTHER, SELFPAY ==
--- NOTE | 2021-01-17 12:03 | MHC.PT.EP ---
[facility] [place] Office [place] Office [place] Office [address] Carlitos Lew [address] [phone] F: [phone] F: [phone] F: [phone] F: [phone] Physical Therapy Plan of Care Date of Evaluation: 01/17/21 Date of Surgery: 12/06/20 Diagnosis: L TKR Assessment: Pt IS 60 YO F REFERRED TO PT FROM [facility] (LIAM DELA CRUZ) S/P L TKR ON 12/06/[address] BAILEY. Pt HAD HOME PT UPON DC FROM HOSPITAL. Pt PRESENTS TO PT WITH ONLY MINIMAL LACK OF L KNEE ROM, SOME DECREASE IN L LE STRENGTH, SOME DECREASE IN PROPRIOCEPTION, AND SLIGHT SWELLING. Pt IS AMBULATING WITHOUT AD WITH ONLY SLIGHT LIMP. Pt WOULD LIKE TO BE ABLE TO RIDE THE BIKE AND DO BETTER ON STAIRS. Pt LIVES WITH HER AND TEENAGE DTRS AND WORKS FOR [employer] (REPORTS ABLE TO MAKE HER OWN HOURS). Pt SHOULD BENEFIT FROM PT FOR A SHORT TIME TO WORK ON HIGHER LEVEL STRENGTHENING EXS, END RANGE OF MOTION AND BALANCE/PROPRIOCEPTION ACTIVITIES. Frequency and Duration: The patient will be seen 2X/WK X 4 WKS Short Term Goals: 1. INCREASED AWARENESS KNEE CARE 2. I HEP WITH DC EX PLAN 3. Pt TO REPORT IMPROVED STAIR NEGOTIATION 4. Pt TO BE ABLE TO RIDE STATIONARY BIKE AT GYM WITH HER [employer] Goals: 1. L KNEE ROM 0-125 2. DECREASED L KNEE PAIN AT LEAST 50% WITH ADLS 3. SLS>10 SEC B 4. OVERALL LESS SWELLING L KNEE NOTED AND REPORTED BY Pt Treatment Plan: Modalities to reduce pain, spasms and effusion. Manual therapy to restore motion and function. Therapeutic exercise to improve strength and flexibility. Neuromuscular re-education for posture and balance. Therapeutic activities to return to functional activities of daily living. Electronically signed by: ROGERS [place] PT Please sign and return to therapist. Thank you for your referral.
--- NOTE | 2021-02-14 09:38 | MHC.PT.DC ---
[facility] [place] Office [place] Office [place] Office [address] Carlitos Lew [address] [phone] F: [phone] F: [phone] F: [phone] F: [phone] Physical Therapy Discharge Report Diagnosis: L TKR Date of Surgery: 12/06/20 Date of Evaluation: 01/17/21 Date of Discharge: 02/14/21 Treatments to Date: 1 Cancellations to Date: 4 No Shows to Date: 2 Discharge Status: Patient Elected to Stop Visit Non-compliance Discharge Summary: Pt SEEN FOR INIT EVAL ONLY THEN CANCELLED OR NO SHOWED FURTHER VISITS. PER ASSESSMENT FROM INITIAL EVAL: Pt IS 60 YO F REFERRED TO PT FROM [facility] (LIAM DELA CRUZ) S/P L TKR ON 12/06/[address] BAILEY. Pt HAD HOME PT UPON DC FROM HOSPITAL. Pt PRESENTS TO PT WITH ONLY MINIMAL LACK OF L KNEE ROM, SOME DECREASE IN L LE STRENGTH, SOME DECREASE IN PROPRIOCEPTION, AND SLIGHT SWELLING. Pt IS AMBULATING WITHOUT AD WITH ONLY SLIGHT LIMP. Pt WOULD LIKE TO BE ABLE TO RIDE THE BIKE AND DO BETTER ON STAIRS. Pt LIVES WITH HER AND TEENAGE DTRS AND WORKS FOR [employer] (REPORTS ABLE TO MAKE HER OWN HOURS). Pt SHOULD BENEFIT FROM PT FOR A SHORT TIME TO WORK ON HIGHER LEVEL STRENGTHENING EXS, END RANGE OF MOTION AND BALANCE/PROPRIOCEPTION ACTIVITIES. THIS PT LEFT MESSAGE AT DR MEEKS OFFICE RE: SEEN FOR INIT EVAL ONLY Electronically signed by: ROGERS [place] PT Please sign and return to therapist. Thank you for your referral.
== END 2021-02-14 09:39 | disposition other institution (70) ==
LOC: HO.PTWFD 08:58
PROVIDERS: PCP Internal Medicine; Visit Provider Physician Assistant
DX: Z96.652 Presence of left artificial knee joint (principal)
CPT/HCPCS: 97110; 97161

== ENCOUNTER → 2021-01-22 11:00 | Outpatient (BNVA) | payer OTHER, SELFPAY | PROVIDERS: PCP Internal Medicine; Visit Provider Orthopaedic Surgery | DX: Z96.652 Presence of left artificial knee joint (principal) | CPT/HCPCS: 99212 ==

== ENCOUNTER 2021-03-05 07:36 | Outpatient (REF) | payer OTHER, SELFPAY | END 2021-03-05 07:37 | disposition home or self-care (01) | LOC: HO.HOSX 07:36 | PROVIDERS: Visit Provider Orthopaedic Surgery | DX: Z13.89 Encounter for screening for other disorder (principal) ==

== ENCOUNTER 2025-07-21 07:20 | Outpatient (REF) | payer BC, SELFPAY ==
--- NOTE | ~2025-07-21 | XR_ITS ---
EXAMINATION: XR KNEE, LEFT CLINICAL INFORMATION: M25.562 - Pain in left knee COMPARISON: December 06, 2020 TECHNIQUE: AP bilateral standing, sunrise and lateral views of the left knee. FINDINGS: Right knee demonstrates moderate medial compartment and mild lateral compartment joint space narrowing with moderate marginal osteophyte formation. Total knee arthroplasty is again noted on the left. Hardware is intact and aligned without abnormal lucency at bone metal interfaces. There is no joint effusion. XR/XR knee LT 3V IMPRESSION: Moderate osteoarthritis of the right knee. Stable total knee arthroplasty on the left. Electronically signed by: Artie Fisher MD 07/21/2025 09:52 AM EDT
--- OUTSIDE RECORDS SUMMARY | 2025-07-21 07:23 | XMS_ITS | Clinical Summary ---
Author Organization [facility] ity Address [address] [place] [address] Care Team Providers Care Professional Nursing Assistant Name Role Phone Unavailable Primary Care Provider Unavailabl e Social History Tobacco Use Types Packs/Day Years Used Date Smoking Tobacco: Never Assessed Comments Unknown Sex and Gender Information Value Date Recorded Sex Assigned at Not on file Legal Sex Female 12:35 AM EST Gender Identity Not on file Sexual Orientation Not on file Plan of Treatment Health Maintenance Due Date Last Done Comments Breast Cancer Screening 1959 DTaP,Tdap,and Td Vaccines (1 - Tdap) 1978 Cervical Cancer Screening: P ap Smear 1980 Pneumococcal Vaccine: 50+ Ye ars (1 of 1 - PCV) 2009 Zoster Vaccines (1 of 2) 2009 COVID-19 Vaccine (2023-2 5 season) 2024 Depression Screening 12/01/2024 Influenza Vaccine (#1) 2025 RSV Immunization Adult Patie nts (1 - 1-dose 75+ series) 2034 HIB Vaccines Aged Out No longer eligi ble based on patient's age to complete this topic HPV Vaccines Aged Out No longer eligi ble based on patient's age to complete this topic Hepatitis A Vaccines Aged Out No long er eligible based on patient's age to complete this topic Hepatitis B Vaccines Aged Out No long er eligible based on patient's age to complete this topic IPV Vaccines Aged Out No longer eligi ble based on patient's age to complete this topic MMR Vaccines Aged Out No longer eligi ble based on patient's age to complete this topic Meningococcal ACWY Vaccine Aged Out N o longer eligible based on patient's age to complete this topic Meningococcal B Vaccine Aged Out No l onger eligible based on patient's age to complete this topic RSV Immunization Patients Un chayo 20 months Aged Out No longer eligible b ased on patient's age to complete this topic Varicella Vaccines Aged Out No longer eligible based on patient's age to complete this topic
--- OUTSIDE RECORDS SUMMARY | 2025-07-21 07:23 | XMS_ITS | Clinical Summary ---
Author Organization [facility] Address [address] [facility] [address] [place] [phone] Phone Care Team Providers Care Sales Representative Printing Name Role Phone Unknown, Unknown Primary Care Provider Dakota lau Allergies Active Allergy Reactions Criticality Noted Date Comments Acetaminophen-Codeine Pain,Shortness Of Breath High 07/06/2024 Medications citalopram (CELEXA) 40 MG tablet Take 40 mg by mouth. 02/05/2024 Active Active Problems No known active problems Social History Tobacco Use Types Packs/Day Years Used Date Smoking Tobacco: Never Assessed Education Answer Date Recorded Are you interested in more education? Not on larry e 05/14/2024 Are you concerned about learning? Not on file 05/14/2024 No 05/14/2024 No 05/14/2024 Digital Access Answer Date Recorded No 05/14/2024 No 05/14/2024 Reliable internet access at home? Not on file 05/14/2024 Device with a working camera? Not on file Comments Unknown Sex and Gender Information Value Date Recorded Sex Assigned at Not on file Legal Sex Female 2:30 PM EDT Gender Identity Not on file Sexual Orientation Not on file Plan of Treatment Health Maintenance Due Date Last Done Comments Adult Td,Tdap Booster 1959 LIPID PANEL 1959 DEPRESSION SCREENING 1971 SMOKING Hx and SMOKELESS TOB ACCO SCREENING 1972 HEPATITIS C SCREENING 1977 HIV ONE-TIME SCREENING (18-6 5 YEARS) 1977 MAMMOGRAM 1999 COLOGUARD 2004 COLONOSCOPY 2004 COLORECTAL CANCER SCREENING 2004 FIT TEST 2004 FOBT 2004 SIGMOIDOSCOPY 2004 VIRTUAL COLONOSCOPY 2004 PNEUMOCOCCAL VACCINES (50+ y ears) (1 of 1 - PCV) 2009 ZOSTER VACCINES (1 of 2) 2009 COVID-19 VACCINE ( - 2023-2 5 season) 2024 OSTEOPOROSIS SCREENING INITI AL (ONE-TIME) 2024 RSV VACCINE (1 - 1-dose 75+ series) 2034 HEPATITIS A VACCINES Aged Out No long er eligible based on patient's age to complete this topic HIB VACCINES Aged Out No longer eligi ble based on patient's age to complete this topic MENINGOCOCCAL VACCINES (ACWY) Aged Out No longer eligible based on patient's age to complete this topic MENINGOCOCCAL VACCINES (B) Aged Out N o longer eligible based on patient's age to complete this topic Medical Devices Not on file Care Teams Sales Representative Printing Relationship Specialty Start Date End Date Unknown, Unknown, PCP - General 03/22/24 Additional Source Comments The information contained in this document represents components of the legal health record. It is not the complete legal health record.[facility]
== END 2025-07-21 07:21 | disposition home or self-care (01) ==
LOC: HO.HOSX 07:20
PROVIDERS: Visit Provider Orthopaedic Surgery
DX: M23.91 Unspecified internal derangement of right knee (principal); M25.562 Pain in left knee; Z96.652 Presence of left artificial knee joint
CPT/HCPCS: 73562

== ENCOUNTER 2025-07-21 08:57 | Outpatient (AMB) | payer BC, SELFPAY ==
--- NOTE | 2025-07-21 09:03 | A.OFFVIS_ITS ---
Intake Visit Reasons: New Pt - Left Knee Pain Hx of Left TKA 2020 Intake Note: Tiffany is a 64 year old female who presents today with complaints of pain and swelling of her Right Knee. Hx of Left TKA 12/06/2020. Patient reports that she has had ongoing right knee pain for about 1 year now. She reports no history of injections or therapy. She reports that she will not be doing any injections on this right knee and wants to discuss a TKA. Allergies codeine (From Tylenol-Codeine) Allergy (Severe, Verified 01/22/21 11:08) Abdominal Pain HPI HPI New Pt - Left Knee Pain Hx of Left TKA 2020: Details: Tiffany is a 64 year old female who presents today with complaints of pain and swelling of her Right Knee. Hx of Left TKA 12/06/2020. Patient reports that she has had ongoing right knee pain for about 1 year now. She reports no history of injections or therapy. She reports that she will not be doing any injections on this right knee and wants to discuss a TKA. She limps everywhere she goes. She has difficulty with stairs and with twisting activities. She describes sharp in the middle of the night and sharp pain with activities. She describes painful catching but no true locking. [facility] Medical History Arthritis Depression History of breast cancer Osteoarthritis of left knee PONV (postoperative nausea and vomiting) Surgical History H/O gastric bypass History of ear surgery Hx of arthroscopy of left knee Hx of cholecystectomy Social History Household Members: Children Housing: House Are you a primary pet care worker to a significant other at home: No Do you presently have visiting nurse or other home services: No Alcohol intake: current Alcohol intake frequency: a few times a month Comment: asleep Second Hand Smoke Exposure: No service: No Current occupational status: unemployed Current occupation: right-handed Physical Exam Exam Exam: Pleasant woman in no acute distress. Her right knee is notable for medial joint line tenderness to palpation sharp medial Ashly's. She also has tenderness over the medial tibial plateau. No effusion. Results Reviewed Results Reviewed: I personally reviewed relevant radiographs. AP radiographs demonstrate moderate medial compartment osteoarthritis right knee Assessment & Plan Assessment & Plan (1) Internal derangement of right knee: Code(s): M23.91 - Unspecified internal derangement of right knee Category: Medical Plan: 64-year-old woman with [id number] OA but mechanical symptoms associated with internal derangement, likely meniscal. I recommend MRI to assess. Orders: Orders XR knee LT 3V Today M25.562 - Pain in left knee MR knee RT wo con Today M23.91 - Unspecified internal derangement of right knee Coding Level of Care Code New Pt Level 3 (71672) Diagnoses Internal derangement of right knee M23.91
== END 2025-07-21 09:53 | disposition home or self-care (01) ==
PROVIDERS: Visit Provider Orthopaedic Surgery
DX: M23.91 Unspecified internal derangement of right knee (principal)
CPT/HCPCS: 99203

== ENCOUNTER → 2025-07-21 09:00 | Outpatient (BNV) | payer BC, SELFPAY | PROVIDERS: Visit Provider Radiology Diagnostic Radiology | DX: Z96.652 Presence of left artificial knee joint (principal) | CPT/HCPCS: 73562 ==

== ENCOUNTER → 2025-08-02 07:28 | Outpatient (BNV) | payer BC, SELFPAY | PROVIDERS: Visit Provider Radiology Diagnostic Radiology | DX: S83.241A Other tear of medial meniscus, current injury, right knee, initial encounter (principal); M25.461 Effusion, right knee; M94.261 Chondromalacia, right knee | CPT/HCPCS: 73721 ==

== ENCOUNTER 2025-08-02 07:31 | Outpatient (REF) | payer BC, SELFPAY ==
--- NOTE | ~2025-08-02 | MR_ITS ---
CLINICAL HISTORY: M23.91 - Unspecified internal derangement of right knee MR right knee without contrast Comparison: DX/SR - XR KNEE 3 VIEWS LEFT - 07/21/25 09:00 EDT Findings: There is increased signal throughout the medial meniscus which is most prominent in the body and posterior horn. The medial meniscus is extruded. There is a tear of the posterior horn of the medial meniscus. There is increased signal in the lateral meniscus without definitive tear. The anterior and posterior cruciate ligaments are intact. The medial and lateral collateral ligaments are intact . There is medial periligamentous edema. No edema in the posterior lateral corner. The extensor mechanism is intact. Moderate-sized joint effusion. No Clarke's cyst. There is edema in the subcutaneous fat which is most prominent in the prepatellar/infrapatellar region. There is a mild amount of edema within of the proximal tibia centered upon the tibial spines. Trace subcortical edema in the medial femoral condyle. [id number] tricompartmental osteophytosis. There is full-thickness chondromalacia involving the medial femoral condyle. There is partial-thickness chondromalacia in the lateral tibiofemoral and patellofemoral compartments. Impression: Tear of the medial meniscus. No cruciate or collateral ligament tears. Moderate-sized joint effusion. Mild amount of edema in the proximal tibia centered upon the tibial spines, favored to be degenerative. Trace amount of subcortical edema in the medial femoral condyle with overlying full-thickness chondromalacia. There is otherwise partial-thickness chondromalacia. This document has been electronically signed by: Nicole Damon MD on 08/02/2025 22:33:32
--- OUTSIDE RECORDS SUMMARY | 2025-08-02 07:35 | XMS_ITS | Clinical Summary ---
Author Organization [facility] ity Address [address] [place] [address] Care Team Providers Care Press Washer Name Role Phone Unavailable Primary Care Provider [...] 2009 Zoster Vaccines (1 of 2) 2009 Depression Screening 12/01/2024 COVID-19 Vaccine ( - 2023-2 5 season) 2025 Influenza Vaccine (#1) 2025 RSV Immunization Adult [...]
--- OUTSIDE RECORDS SUMMARY | 2025-08-02 07:35 | XMS_ITS | Clinical Summary ---
Author Organization [facility] Address [address] [facility] [address] [place] [phone] Phone Care Team Providers Care Fireworks Assembly Supervisor Name Role Phone Unknown, Unknown Primary Care [...] Medical Devices Not on file Care Teams Fireworks Assembly Supervisor Relationship Specialty Start Date End Date Unknown, Unknown, PCP - General 03/22/24 Additional Source Comments The information contained in this document represents components of the legal health record. It is not the complete legal health record.[facility]
== END 2025-08-02 07:32 | disposition home or self-care (01) ==
LOC: HO.MRI 07:31
PROVIDERS: Visit Provider Orthopaedic Surgery
DX: M23.91 Unspecified internal derangement of right knee (principal)
CPT/HCPCS: 73721

== ENCOUNTER 2025-08-18 11:25 | Outpatient (AMB) | payer BC, SELFPAY ==
--- NOTE | 2025-08-18 11:44 | MHC.OFFVIS ---
Intake Visit Reasons: OV - Right Knee MRI Review Intake Note: Tiffany is a 64 year old female who presents today for an MRI review for her Right Knee. Patient has reported right knee pain ongoing for over 1 year now. Hx of Left TKA. Allergies codeine (From Tylenol-Codeine) Allergy (Severe, Verified 01/22/21 11:08) Abdominal Pain HPI HPI OV - Right Knee MRI Review: Details: Tiffany is a 64 year old female who presents today for an MRI review for her Right Knee. Patient has reported right knee pain ongoing for over 1 year now. Hx of Left TKA. She describes difficulty walking and sharp medial knee pain with catching when she goes to extend. She comes in today after having had an MRI. He has had injections which have not been helpful. This is similar to what happened in her left knee. She had multiple arthroscopies prior to a left knee replacement which helped her symptoms tremendously. [facility] Medical History Arthritis Depression History of breast cancer Osteoarthritis of left knee PONV (postoperative nausea and vomiting) Surgical History H/O gastric bypass History of ear surgery Hx of arthroscopy of left knee Hx of cholecystectomy Social History Household Members: Children Housing: House Are you a primary manager intensive care unit to a significant other at home: No Do you presently have visiting nurse or other home services: No Alcohol intake: current Alcohol intake frequency: a few times a month Comment: asleep Second Hand Smoke Exposure: No service: No Current occupational status: unemployed Current occupation: right-handed Physical Exam Exam Exam: A pleasant woman in no acute distress. There is positive gait antalgia on the right. She has tenderness to palpation medial compartment a medial Ashly's. Stable to varus and valgus stress. 2+ dorsalis pedis pulse. Skin intact to light touch Results Reviewed Results Reviewed: I personally reviewed the MR images. Impression: Tear of the medial meniscus. No cruciate or collateral ligament tears. Moderate-sized joint effusion. Mild amount of edema in the proximal tibia centered upon the tibial spines, favored to be degenerative. Trace amount of subcortical edema in the medial femoral condyle with overlying full-thickness chondromalacia. There is otherwise partial-thickness chondromalacia. Assessment & Plan Assessment & Plan (1) Tear of medial meniscus of right knee: Code(s): S83.241A - Other tear of medial meniscus, current injury, right knee, initial encounter Category: Medical Plan: This is a 64-year-old woman with a complex degenerative tear of the right knee medial meniscus. She has [id number] arthritic changes on imaging and as a result I think a knee replacement would be overly aggressive. She is worried that this sounds similar to her like the treatment plan for her left knee that underwent multiple knee arthroscopies which were unhelpful prior to knee replacement which has been very helpful. Unfortunately her radiographs and MRI do not demonstrate any severe arthritic changes in her symptoms are localized to the medial joint line and are consistent with a medial meniscus tear. I do recommend knee arthroscopy for medial meniscectomy. I discussed the possibility of more severe appearing cartilage surfaces intraoperatively and that ultimately it might result in a knee replacement but at this point I think knee replacement would be too aggressive. I explained the risks, benefits and alternatives to knee arthroscopy. She expressed understanding and we will proceed forward accordingly. Coding Level of Care Code Est Pt Level 4 (65448) Diagnoses Tear of medial meniscus of right knee S83.241A
--- OUTSIDE RECORDS SUMMARY | 2025-08-18 13:49 | XMS_ITS | Clinical Summary ---
Author Organization [facility] Address [address] [facility] [address] [place] [id number] Phone Care Team Providers Care Associate Director Financial Aid Name Role Phone Unknown, Unknown Primary Care [...] 2009 ZOSTER VACCINES (1 of 2) 2009 OSTEOPOROSIS SCREENING INITI AL (ONE-TIME) 2024 INFLUENZA VACCINE (#1) 2025 COVID-19 VACCINE (1 - 2023-2 5 season) 2025 RSV VACCINE (1 - 1-dose 75+ series) [...] Medical Devices Not on file Care Teams Associate Director Financial Aid Relationship Specialty Start Date End Date Unknown, Unknown, PCP - General 03/22/24 Additional Source Comments The information contained in this document represents components of the legal health record. It is not the complete legal health record.[facility]
--- OUTSIDE RECORDS SUMMARY | 2025-08-18 13:49 | XMS_ITS | Clinical Summary ---
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
== END 2025-08-18 13:10 | disposition home or self-care (01) ==
LOC: HO.HOS 11:26
PROVIDERS: Visit Provider Orthopaedic Surgery
DX: S83.241A Other tear of medial meniscus, current injury, right knee, initial encounter (principal)
CPT/HCPCS: 99214

== ENCOUNTER 2025-08-30 05:48 | Day surgery (SDC) | payer BC, SELFPAY ==
[2025-08-25 13:21] VITALS: BMI 37.1
[2025-08-30] VITALS (7 sets, daily range): BP systolic 118–134; BP diastolic 62–76; PULSE 66–78; RESP 14–18; TEMP 36.1–36.9; O2SAT 97–100
[2025-08-30] MEDS: Lactated Ringers 1,000 ML 100 ML IVCONT (06:29)
--- NOTE | 2025-08-30 07:05 | HO.ANESPROP2 ---
Documented by User: Mary Gardner NP 08/26/25 10:14 HPI - Anesthesia Eval Consult details Narrative: 65yo F for Right Knee Arthroscopy with Medial meniscectomy PONV but does not tolerate scop patch PMFSH Active Problems Active Problems: All Active Problems Tear of medial meniscus of right knee (Acute) Internal derangement of right knee (Acute) Internal derangement of left knee (Acute) Status post total left knee replacement (Acute) Past Medical History Medical History Side effect of medication Osteoarthritis Breast cancer PONV (postoperative nausea and vomiting) Arthritis Depression Family History Family history of problems with anesthesia: Yes (PONV) Surgical History Surgical History H/O colonoscopy Hx of breast surgery History of total left knee replacement Hx of arthroscopy of left knee History of ear surgery H/O gastric bypass Hx of cholecystectomy History of Problems with Anesthesia: Yes (PONV) Social History Social History Household Members: Children Household Members Other:: spouse & three daughters Housing: House Are you a primary urgent care physician to a significant other at home: No Do you presently have visiting nurse or other home services: No Alcohol intake: current Alcohol intake frequency: does not drink Comment: asleep Patient Tobacco Use Status: Never used Tobacco Second Hand Smoke Exposure: No Use of substances other than those prescribed or required for medical reasons: No Have you been hit, kicked, punched, or otherwise hurt by someone within the past year? If so, by whom?: No Spiritual Healthcare Practices: no [facility] Practices: no Cultural Healthcare Practices: no Are you DNR?: No Advance Directives: Yes Advance Directives Information Provided: Yes Advance Directives on File: Yes Advance Directives Date on File: 12/11/20 FDLMP: n/a Poor oral hygiene: No service: No Current occupational status: unemployed Current occupation: right-handed Meds Allergies Allergy/AdvReac Type Severity Reaction Status Date / Time codeine (From Allergy Severe Abdominal Verified 08/30/25 06:05 Tylenol-Codeine) Pain Exam Height,Weight and Vital Signs: Height 5 ft 6 in Weight 104.326 kg Assessment and Plan Assessment Anesthesia Assessment: Chart Reviewed Final Anesthetic Review Family History of Problems with Anesthesia: Yes (PONV) History of Problems with Anesthesia: Yes (PONV) Documented by User: Apoorva Mcdonald DO 08/30/25 07:21 [facility] Past Medical History Medical History Side effect of medication Osteoarthritis Breast cancer PONV (postoperative nausea and vomiting) Arthritis Depression Family History Family history of problems with anesthesia: Yes (PONV) Surgical History Surgical History H/O colonoscopy Hx of breast surgery History of total left knee replacement Hx of arthroscopy of left knee History of ear surgery H/O gastric bypass Hx of cholecystectomy History of Problems with Anesthesia: Yes (PONV) Social History Social History (Reviewed 01/22/21 @ 11:08 by Moon Angelo [facility]) Household Members: Children Household Members Other:: spouse & three daughters Housing: House Are you a primary urgent care physician to a significant other at home: No Do you presently have visiting nurse or other home services: No Alcohol intake: current Alcohol intake frequency: does not drink Comment: asleep Patient Tobacco Use Status: Never used Tobacco Second Hand Smoke Exposure: No Use of substances other than those prescribed or required for medical reasons: No Have you been hit, kicked, punched, or otherwise hurt by someone within the past year? If so, by whom?: No Spiritual Healthcare Practices: no [facility] Practices: no Cultural Healthcare Practices: no Are you DNR?: No Advance Directives: Yes Advance Directives Information Provided: Yes Advance Directives on File: Yes Advance Directives Date on File: 12/11/20 FDLMP: n/a Poor oral hygiene: No service: No Current occupational status: unemployed Current occupation: right-handed Meds Allergies Allergy/AdvReac Type Severity Reaction Status Date / Time codeine (From Allergy Severe Abdominal Verified 08/30/25 06:05 Tylenol-Codeine) Pain Exam Exam Date and Time: 08/30/25 0705 Height,Weight and Vital Signs: Height 5 ft 6 in Weight 104.326 kg Vital Signs Temperature 98.5 F 08/30/25 06:27 Pulse Rate 74 08/30/25 06:27 Respiratory Rate 15 08/30/25 06:27 Blood Pressure 118/76 08/30/25 06:27 Pulse Oximetry 97 08/30/25 06:27 Oxygen Delivery Method Room Air 08/30/25 06:27 Temperature 98.5 F 08/30/25 06:27 Pulse Rate 74 08/30/25 06:27 Respiratory Rate 15 08/30/25 06:27 Blood Pressure 118/76 08/30/25 06:27 Pulse Oximetry 97 08/30/25 06:27 Oxygen Delivery Method Room Air 08/30/25 06:27 Airway Mallampati Class: II TM Dist: <=3cm Neck ROM: Full Denture: Upper and Lower Heart: S1S2 Lungs: CTAB Assessment and Plan Assessment Anesthesia Assessment: Anesthesia Plan Discussed and Chart Reviewed Final Anesthetic Review Family History of Problems with Anesthesia: Yes (PONV) History of Problems with Anesthesia: Yes (PONV) NPO: Yes ASA Class: II Final Preanesthetic Review: No Changes in Pt Med Stat, Meds/Allgs Chart Reviewed, Consent Obtained/Reviewed and Anes Risks/Benef Reviewed Patient Risk: Low Procedure Risk: Low Anesthetic Plan Anesthetic Plan: GA and Agree w/ Assess. and Plan Disposition: Standard PACU
--- NOTE | 2025-08-30 07:25 | MHC.SHP ---
Pre-Procedural Eval Section A - 24 Hr Update-Section A only Date of Service: 08/30/25 The patient is an INPATIENT: No Changes since office visit: No Cold of Flu in the past 2 weeks, No New Medical Problems, No Changes in Medication and No Patient answered all questions The patient has been examined within 24 hours of the surgical procedure. The History & Physical has been completed within 30 days and I have reviewed it.: Yes Section B - Complete if H&P > 30 days Chief Complaint: Other tear of medial meniscus, current injury, Allergies: Allergies Allergy/AdvReac Type Severity Reaction Status Date / Time codeine (From Allergy Severe Abdominal Verified 08/30/25 06:05 Tylenol-Codeine) Pain Plan I have reviewed the history and physical and performed a pertinent physical examination on my patient. No changes have occurred unless specified. Time Spent With Patient Time: Total time managing care of this patient today ____ minutes.
[2025-08-30] MEDS: oxyCODONE HCl Immed Release 5 MG TABLET PO (08:38)
--- NOTE | 2025-09-01 10:00 | P.OP_ITS ---
Operative Note Operative Note Date of Service: 08/30/25 Narrative: Date of Service: 08/30/25 Pre-op diagnosis: Right knee MMT Post-op diagnosis: same Procedure: Right knee with partial medial meniscectomy and chondroplasty Implants: none Surgeon: Kev Mas MD Was an Audit Analyst used for this Procedure?: No Estimated blood loss (mL): 5 Tourniquet time (min): 15 IV fluids (mL): 500 Pathology: none sent Condition: stable Disposition: PACU Procedure in detail: Patient was brought to the operating room placed supine on the arthroscopic table and prepped and draped in standard sterile fashion. A time-out was called to identify proper site proper procedure proper surgeon and IV antibiotics per weight were administered. I began by exsanguinating the limb and insufflating tourniquet to 300 mm Hg. Then made a standard anterolateral stab incision. The knee was insufflated with water and 30 degree arthroscope was placed. There was grade 2-3 fibrillations of the patella and the trochlea had grade 3-4 changes. The suprapatellar pouch and the gutters were clean. I descended into the medial compartment where I made my medial portal under direct visualization. There was grade 3 changes of the medial tibial plateau and a radial tear in the body of the medial meniscus. The root was intact. I used a combination of biter shaver and cautery to remove unstable portions of the meniscus. Apporximately 30% meniscal volume was removed. Once I was satisfied with this t he ACL was examined and found to be intact. I then examined the lateral compartment. There were grade 2/3 changes of the lateral tibial plateau and grade 1 changes of a small portion of the weight-bearing portion of the lateral femoral condyle. The meniscus was intact. The root was intact. I then removed all instrumentation and closed the portals with skin glue. 25 mL of 2% Marcaine with epinephrine was injected into the joint and the surrounding soft tissues. Patient was then placed in sterile dressing extubated brought recovery room stable condition. There were no known complications.
== END 2025-08-30 09:48 | disposition home or self-care (01) ==
PROVIDERS: Visit Provider Orthopaedic Surgery
PROC: (CPT 29870; principal; 2025-08-30 07:30)
DX: M23.231 Derangement of other medial meniscus due to old tear or injury, right knee (principal); M17.11 Unilateral primary osteoarthritis, right knee; M25.561 Pain in right knee; R26.2 Difficulty in walking, not elsewhere classified; M25.461 Effusion, right knee; R26.89 Other abnormalities of gait and mobility; M19.90 Unspecified osteoarthritis, unspecified site; Z96.652 Presence of left artificial knee joint; M17.12 Unilateral primary osteoarthritis, left knee; Z85.3 Personal history of malignant neoplasm of breast; Z98.84 Bariatric surgery status; Z90.49 Acquired absence of other specified parts of digestive tract; Z88.5 Allergy status to narcotic agent; Z98.890 Other specified postprocedural states; Z56.0 Unemployment, unspecified
CPT/HCPCS: 29881; J0131; J0165; J0690; J1100; J2003; J2250; J2405; J2704; J2795; J3010

== ENCOUNTER → 2025-08-30 05:48 | Outpatient (BNV) | payer BC, SELFPAY | PROVIDERS: Visit Provider Orthopaedic Surgery | DX: S83.241A Other tear of medial meniscus, current injury, right knee, initial encounter (principal) | CPT/HCPCS: 29881 ==

== ENCOUNTER 2025-09-06 08:57 | Outpatient (AMB) | payer BC, SELFPAY ==
--- NOTE | 2025-09-06 09:03 | MHC.OFFVIS ---
Intake Visit Reasons: PO-Rt Knee 08/30/25 NE Intake Note: Tiffany is a 65 year old female who presents today for a post op appointment for her right knee arthroscopy w/ medial meniscectomy 08/30/25. Patent reports she is doing great. She is wondering what you guys saw during the surgery. Allergies codeine (From Tylenol-Codeine) Allergy (Severe, Verified 09/06/25 09:03) Abdominal Pain HPI HPI PO-Rt Knee 08/30/25 NE: Details: Ms. Yinka noriega is a 65-year-old female who presents to the office today status post right knee arthroscopy for a partial medial meniscectomy and chondroplasty performed on 08/30/[address] Mas. During the procedure the patient was noted to have grade 2-3 fibrillations of the patella. The trochlea had grade 3-4 changes. Grade 3 changes of the medial tibial plateau. Grade 2-3 changes of the lateral tibial plateau and grade 1 changes of the weight-bearing portion of the lateral femoral condyle. Overall, the patient is doing very well. She is experiencing little pain. She reports that she is able to ambulate much better than prior to surgery. [facility] Medical History (Updated 09/06/25 @ 09:21 by Dahlia Hua PA-C) Side effect of medication Osteoarthritis Breast cancer PONV (postoperative nausea and vomiting) Arthritis Depression Surgical History H/O colonoscopy Hx of breast surgery History of total left knee replacement Hx of arthroscopy of left knee History of ear surgery H/O gastric bypass Hx of cholecystectomy Social History Household Members: Children Household Members Other:: spouse & three daughters Housing: House Are you a primary patient care coordinator to a significant other at home: No Do you presently have visiting nurse or other home services: No Alcohol intake: current Alcohol intake frequency: does not drink Comment: asleep Patient Tobacco Use Status: Never used Tobacco Second Hand Smoke Exposure: No Advance Directives Date on File: 12/11/20 service: No Current occupational status: unemployed Current occupation: right-handed Review of Systems Const All systems reviewed & are unremarkable except as noted in HPI and below Physical Exam Const General: cooperative, healthy appearing and no acute distress Resp Effort & Inspection: normal respiratory effort and able to speak in complete sentences Extrem Other: Right knee incision sites are clean dry and intact. Sutures intact. No surrounding erythema or drainage. No signs of infection. Range of motion 10-110. NVI. Psych Appearance: grossly normal Mental Status: mental status grossly normal Attitude: cooperative Assessment & Plan Assessment & Plan (1) Tear of medial meniscus of right knee: Code(s): S83.241A - Other tear of medial meniscus, current injury, right knee, initial encounter Category: Medical (2) Osteoarthritis of right knee: Code(s): M17.11 - Unilateral primary osteoarthritis, right knee Category: Medical Plan Ms. Honeycutt this is a 65-year-old female who presents to the office today status post right knee arthroscopy for a partial medial meniscectomy and chondroplasty performed on 08/30/[address] Mas. During the procedure the patient was noted to have grade 2-3 fibrillations of the patella. The trochlea had grade 3-4 changes. Grade 3 changes of the medial tibial plateau. Grade 2-3 changes of the lateral tibial plateau and grade 1 changes of the weight-bearing portion of the lateral femoral condyle. Overall, the patient is doing very well. She is experiencing little pain. She reports that she is able to ambulate much better than prior to surgery. While in the office today, sutures are removed and Steri-Strips were applied. Patient can resume back to normal activities as tolerated. She may shower at this time. No tub baths until incision sites are completely healed. Patient is overall doing very well and ambulating with little to no discomfort therefore physical therapy has been deferred at this time. Should the patient have any setbacks and or concerns with range of motion or ambulatory status she will contact the office and I am happy to place a formal physical therapy order at that time. Otherwise, she will follow up PRN, sooner if needed Coding Level of Care Code Global (41201) Diagnoses Tear of medial meniscus of right knee S83.241A Osteoarthritis of right knee M17.11
--- OUTSIDE RECORDS SUMMARY | 2025-09-06 09:49 | XMS_ITS | Clinical Summary ---
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
--- OUTSIDE RECORDS SUMMARY | 2025-09-06 09:49 | XMS_ITS | Clinical Summary ---
Author Organization [facility] Address [address] [place] [id number] Phone Care Team Providers Care German Instructor Name Role Phone Unknown, Unknown Primary Care [...] ACCO SCREENING 1972 HEPATITIS C SCREENING 1977 MAMMOGRAM 1999 COLOGUARD 2004 COLONOSCOPY 2004 COLORECTAL CANCER SCREENING 2004 FIT TEST 2004 FOBT 2004 SIGMOIDOSCOPY 2004 VIRTUAL COLONOSCOPY 2004 PNEUMOCOCCAL VACCINES (50+ y ears) (1 of 1 - PCV) 2009 ZOSTER VACCINES (1 of 2) 2009 OSTEOPOROSIS SCREENING INITI AL (ONE-TIME) 2024 INFLUENZA VACCINE (#1) 2025 COVID-19 VACCINE (1 - 2024-2 6 season) 2025 RSV VACCINE (1 - 1-dose [...] Medical Devices Not on file Care Teams German Instructor Relationship Specialty Start Date End Date Unknown, Unknown, PCP - General 03/22/24 Additional Source Comments The information contained in this document represents components of the legal health record. It is not the complete legal health record.[facility]
== END 2025-09-06 09:25 | disposition home or self-care (01) ==
LOC: HO.HOS 08:58
PROVIDERS: Visit Provider Physician Assistant
DX: S83.241A Other tear of medial meniscus, current injury, right knee, initial encounter (principal); M17.11 Unilateral primary osteoarthritis, right knee
CPT/HCPCS: 99024